=== PATIENT | male | born 1960 | race Two or more races ===

== ENCOUNTER → 2024-09-03 | Outpatient (CLI) | payer OTHER, SELFPAY ==
--- NOTE | 2024-09-03 09:17 | XR_ITS ---
Examination: CT abdomen and pelvis without contrast. Coronal 3-D reconstructions. Sagittal 2-D reconstructions. Date and time of exam:September 03, 2024 0925 hours INDICATIONS: Microscopic hematuria noted on laboratory examinations beginning 8 months ago CTDI: vol (mGy): 8.60 DLP: (mGycm): 524 Technique: Axial images of the abdomen have been obtained, 3 mm slice thickness Intravenous contrast material has not been administered. Low dose protocols were performed. One or more of the following dose reduction techniques were used; automated exposure control, adjustment of the mA and/or KV according to patient size, use of iterative reconstruction technique. Findings: No focal liver or splenic lesions No gallstones Fatty or adrenal mass Mild bilateral renal parenchymal scar formation No renal or ureteral calculi, no hydronephrosis Aorta normal size Colonic diverticulosis Normal appendix No bowel obstruction No diverticulitis Subtle density in the urinary bladder, axial image 197 on the left side posteriorly, measuring 20 mm Transverse prostate dimension 43 mm IMPRESSION: No renal or ureteral calculi, no hydronephrosis Normal appendix Suspicious for 20 mm mass in the posterior left bladder, recommend urinary bladder sonography follow-up
== END | disposition home or self-care (01) ==
PROVIDERS: PCP Internal Medicine; Referring Provider Internal Medicine; Visit Provider Internal Medicine
DX: N32.89 Other specified disorders of bladder (principal)
CPT/HCPCS: 74176

== ENCOUNTER → 2024-09-08 | Outpatient (CLI) | payer OTHER, SELFPAY ==
[2024-09-08 08:02] LABS: Collection Type, Urine Clean Catch; Squamous Epithelial Cell,Urine 0 /hpf (0-5)
[2024-09-08 08:24] LABS: Basophils # (Auto) 0.1 Thou/mm3 (0.0-0.2); Basophils % (Auto) 1 % (0-2.5); Eosinophils # (Auto) 0.3 Thou/mm3 (0.0-0.5); Eosinophils % (Auto) 2 % (0-10); Hematocrit 45.6 % (41.0-53.0); Hemoglobin 15.6 g/dL (13.5-16.0); Immature Granulocytes % (Auto) 1 % (0-0); Immature Granulocytes Auto 0.06 Thou/mm3 (0.00-0.00); Lymphocytes % (Auto) 28 % (10-50); Mean Corpuscular HGB Conc 34.2 g/dl (31.0-37.0); Mean Corpuscular Hemoglobin 33.1 pg (25.0-35.0); Mean Corpuscular Volume 97 fL (80-100); Monocytes % (Auto) 9 % (0-12); Neutrophils # (Auto) 6.4 Thou/mm3 (1.8-7.7); Neutrophils % (Auto) 59 % (37-80); Nucleated Red Blood Cell % 0 /100 WBC (0); Platelet Count 355 Thou/mm3 (140-440); RDW Standard Deviation 42.8 fL (35.1-43.9); Red Blood Count 4.71 Miln/mm3 (4.50-5.90); White Blood Count 10.8 Thou/mm3 (3.8-10.6)
[2024-09-08 08:35] LABS: Glucose Estimated Average 117 mg/dL (80-131); Hemoglobin A1C 5.7 % Hgb (4.8-6.0)
[2024-09-08 08:39] LABS: Bilirubin,Urine Negative (Negative); Blood,Urine 1+ (Negative); Clarity,Urine Clear (Clear/Hazy); Color,Urine Lt-Yellow (Lt Yel-Yel); Glucose, Urine Negative (Negative); Ketones,Urine Negative (Negative); Leukocyte Esterase,Urine Negative (Negative); Nitrite,Urine Negative (Negative); Protein,Urine Trace (Neg - Trace); RBC,Urine 54 /hpf (0-3); Specific Gravity,Urine 1.024 (1.001-1.035); Urobilinogen,Urine Negative mg/dL (0.0-1.0); WBC,Urine 6 /hpf (0-5)
[2024-09-08 08:43] LABS: Prostate Specific Antigen 1.62 ng/mL (0-4.00)
[2024-09-08 08:46] LABS: Vitamin B12 627 pg/mL (211-911); Vitamin D 25 Hydroxy Total 26.6 ng/mL (7.3-40.2)
[2024-09-08 08:51] LABS: Alanine Aminotransferase 20 U/L (10-49); Albumin, Serum 4.8 gm/dL (3.4-4.8); Albumin/Globulin Ratio 1.7 (1.2-2.2); Alkaline Phosphatase 81 U/L (46-116); Anion Gap 8 (7-16); Aspartate Amino Transferase 21 U/L (0-34); BUN/Creatinine Ratio 17 Ratio (12-20); Bilirubin,Total 0.5 mg/dL (0.3-1.2); Blood Urea Nitrogen 15 mg/dL (9-23); Calcium 9.8 mg/dL (8.3-10.6); Calcium (Corrected) 9.8 mg/dL (8.5-10.1); Carbon Dioxide 29.2 mMol/L (20.0-31.0); Cardiac Risk Estimate 3.5 RATIO (4.0-6.7); Chloride 104 mMol/L (98-107); Cholesterol 202 mg/dL (132-200); Creatinine (Component) 0.9 mg/dL (0.6-1.3); Globulin 2.8 gm/dL (2.3-3.5); Glucose 106 mg/dL (74-106); HDL Cholesterol 57 mg/dL (40-60); LDL Cholesterol,Calculated 129 mg/dL (0-130); Osmolality,Calculated 282 (275-295); Potassium 4.6 mMol/L (3.4-5.1); Sodium 141 mMol/L (136-145); Thyroid Stimulating Hormone 2.43 uIU/mL (0.55-4.78); Total Protein 7.6 gm/dL (5.7-8.2); Triglycerides 80 mg/dL (30-150); eGFR > 60 See Note
== END | disposition home or self-care (01) ==
LOC: COPL 07:27
PROVIDERS: PCP Internal Medicine; Referring Provider Internal Medicine; Visit Provider Internal Medicine
DX: Z00.00 Encounter for general adult medical examination without abnormal findings (principal)
CPT/HCPCS: 36415; 80053; 80061; 81001; 82306; 82607; 83036; 84153; 84443; 84550; 85025

== ENCOUNTER → 2024-09-20 | Outpatient (BNVA) | payer OTHER, SELFPAY | END | disposition home or self-care (01) | PROVIDERS: PCP Internal Medicine; Referring Provider Internal Medicine; Visit Provider Urology | DX: N40.0 Benign prostatic hyperplasia without lower urinary tract symptoms (principal); R31.0 Gross hematuria; Z87.891 Personal history of nicotine dependence; Z80.0 Family history of malignant neoplasm of digestive organs; Z80.42 Family history of malignant neoplasm of prostate | CPT/HCPCS: 81003; 99212; G0463 ==

== ENCOUNTER 2024-09-21 14:00 | Emergency (ER) | payer OTHER, SELFPAY ==
[2024-09-21 14:01] VITALS: BMI 28.8
--- NOTE | 2024-09-21 14:03 | EKG_ITS ---
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
--- NOTE | 2024-09-21 14:05 | EDNOTE_ITS ---
ED Male Genitalurinary RME/HPI General Chief complaint: Urogenital-Male Stated complaint: HEMATURIA Time Seen by Provider: 09/21/24 14:03 Arrival date/time: 09/21/24 14:00 64-year-old male presents the emergency department today complains of hematuria ongoing since November patient was evaluated by urology after having lab work and CT completed patient was instructed to come to the ER for lab work today for preop and to have a return visit tomorrow for admission for surgical intervention as there was a mass found on his CT scan Limitations: no limitations Related Data Home Medications ?Medication ?Instructions ?Recorded ?Confirmed No Known Home Medications 04/03/23 09/20/24 Allergies Allergy/AdvReac Type Severity Reaction Status Date / Time No Known Allergies Allergy Verified 09/21/24 14:01 Review of Systems Review of Systems Systems Reviewed: All systems reviewed, normal except as documented Constitutional Constitutional: Reports system reviewed and no additional complaints, except as documented, Denies fever(s) and Denies headache(s) Eyes Eyes: Reports system reviewed and no additional complaints, except as documented and Denies blurry vision ENT Ears, Nose, Mouth, and Throat: Reports system reviewed and no additional complaints, except as documented, Denies headache(s), Denies nasal congestion and Denies nasal discharge Cardiovascular Cardiovascular: Reports system reviewed and no additional complaints, except as documented, Denies chest pain and Denies dyspnea Respiratory Respiratory: Reports system reviewed and no additional complaints, except as documented, Denies chest congestion, Denies cough and Denies dyspnea Gastrointestinal Gastrointestinal: Reports system reviewed and no additional complaints, except as documented and Denies abdominal pain Genitourinary Genitourinary: Reports system reviewed and no additional complaints, except as documented, Reports hematuria, Denies testicular pain and Reports other (Pelvic pain) Integumentary/Breasts Skin/Breast: Reports system reviewed and no additional complaints, except as documented and Denies rash Neurologic Neurologic: Reports system reviewed and no additional complaints, except as documented, Reports as per HPI and Denies headache(s) Past Medical History Past Medical History NEUROLOGIC: Negative Neurological Disorders or Seizures CARDIAC: Negative Cardiac Disorders or Congestive Heart Failure RESPIRATORY: Negative Chronic Obstructive Pulmonary Disease (COPD) GASTROINTESTINAL: Negative Gastrointestinal Disorders or Hepatitis GENITOURINARY: Negative Genitourinary Disorders or Renal Disease MUSCULOSKELETAL: Negative Musculoskeletal Disorders ENDOCRINE: Negative Endocrine Disorders, Diabetes Mellitus Type 1 or Diabetes Mellitus Type 2 HEMATOLOGIC: Negative Blood Disorders OTHER HISTORY: Positive Chicken Pox, Measles and Mumps; Negative Falls, Blood Transfusions, Anesthesia Reactions, MRSA or Cancer Family History FAMILY HISTORY: Positive Family Cancer (MOTHER- COLON CA, BROTHERS- PROSTATE CA) Social History SMOKING STATUS: Former smoker ED Exam General Limitations: Present no limitations General appearance: Present alert and in no apparent distress Head Head exam: Present atraumatic, normocephalic and normal inspection Eye Eye exam: Present normal appearance, PERRL and EOMI; Absent conjunctival injection ENT ENT exam: Present normal exam, normal oropharynx and mucous membranes moist Neck Neck exam: Present normal inspection, full ROM and trachea midline Chest Chest inspection: Present normal inspection and symmetric chest wall rise Respiratory Respiratory exam: Present normal lung sounds bilaterally; Absent respiratory distress Cardiovascular Cardiovascular exam: Present regular rate, normal rhythm and normal heart sounds Abdominal Exam Abdominal exam: Present soft and normal bowel sounds; Absent distention, tenderness, guarding, rebound or rigidity Extremities Exam Extremities exam: Present normal inspection and full ROM Back Exam Back exam: Present normal inspection and full ROM Neurological Exam Neurological exam: Present alert, oriented X3 and CN II-XII intact Psychiatric Psychiatric exam: Present normal affect and normal mood Skin Skin exam: Present warm, dry, intact and normal color Course Quality Measures none Orders Category Date Time Status EKG (ED ONLY) *Do not use* NOW Care 09/21/24 14:03 Completed Consult to Urology Stat Cons 09/21/24 14:03 Active EKG (ED Only) Stat Exams 09/21/24 14:03 Draft CBC Stat Lab 09/21/24 14:17 Received Comprehensive Metabolic Panel Stat Lab 09/21/24 14:17 Completed Partial Thromboplastin Time Stat Lab 09/21/24 14:17 Completed Prothrombin Time with INR Stat Lab 09/21/24 14:17 Completed Vital Signs Vital signs: Vital Signs Temperature 98.4 F 09/21/24 14:14 Pulse Rate 79 09/21/24 14:14 Respiratory Rate 18 09/21/24 14:14 Blood Pressure 153/95 H 09/21/24 14:14 Pulse Oximetry (%) 98 09/21/24 14:14 Oxygen Delivery Method Room Air 09/21/24 14:14 O2 saturation 98% room air within normal limits Procedures -ED EKG Interpretation #1: Date of EK09/21/24 Time of EK:11 Rate: 68 Interpretation: Interpreted by me EKG Impression: Normal sinus rhythm, No acute ST-T changes, No ectopy, No ischemic changes, Normal QRS and Normal intervals Urogenital - Male MDM Narrative MDM Narrative:: 64-year-old male presents the emergency department today complains of hematuria ongoing since November patient was evaluated by urology after having lab work and CT completed patient was instructed to come to the ER for lab work today for preop and to have a return visit tomorrow for admission for surgical intervention as there was a mass found on his CT scan On exam patient well-appearing patient does not appear ill or toxic in no acute distress Lab work as well as EKG obtained EKG is unremarkable sinus rhythm Lab work obtained and reviewed by me Consultation: I spoke with Dr. Nickerson who reports he would like the patient to return tomorrow at 8 AM for further evaluation and surgical intervention Patient understands he is to return tomorrow morning Patient data External records reviewed:: [facility] previous records Clinical information provided by:: patient Social determinants that could affect healthcare access:: none Patient has the following chronic illnesses:: None How is presenting disease/condition affected by chronic disease/condition?: no chronic disease Evaluation data The following diagnostics were reviewed and interpreted by me:: lab results and radiology exam(s) Lab and/or radiology exams considered but not ordered:: Labs obtained Interpretation Summary: Reviewed by me Medications / Prescriptions Medications or Prescriptions considered but not ordered:: Given no meds Medication administrations:: No meds given Consultations Consultation(s) initiated? (list below): Yes Consultation #1 (Physician, Specialty, Details): Dr Nickerson Diagnosis Urogenital Male Differential Diagnosis: urinary tract infection and other (Cystitis, mass bladder) Most likely diagnosis given after review of the tests above:: Bladder mass Admission Indicated Admission indicated?: not indicated Admission Request Was there a request for admission?: No Disposition Plan Disposition Plan: Discharge Discharge Attestation Discharge Attestation: The patient and all family members were given an opportunity to ask questions and understood the discharge instructions. Discharge instructions specifically effects, indications for sooner follow up or return to the emergency department, and the expected course of current diagnosis. Patient condition: Stable Discharge Plan Plan Patient Disposition: HOME (Self Care) Disposition Comment: Stable Prescriptions/Referrals Prescriptions/Med Rec: No Action No Known Home Medications Problem List Clinical Impression: Abdominal pain, Hematuria Patient/Caregiver Discharge Instructions Education Materials: ED Hematuria Additional Instructions: Please return tomorrow at 8 AM for surgical intervention for worsening symptoms or concerns return immediately Print Language: Persian Stand Alone Forms: Alicia Award Info., Patient Portal Info Letter PA/RUBBER CALENDER HELPER Supervising Physician PA/RUBBER CALENDER HELPER Supervising Physician: Dr tillman
[2024-09-21 14:14] VITALS: BP 153/95; PULSE 79; RESP 18; TEMP 36.9; O2SAT 98
[2024-09-21 14:38] LABS: Basophils # (Auto) 0.1 Thou/mm3 (0.0-0.2); Basophils % (Auto) 1 % (0-2.5); Eosinophils # (Auto) 0.2 Thou/mm3 (0.0-0.5); Eosinophils % (Auto) 2 % (0-10); Hematocrit 43.6 % (41.0-53.0); Hemoglobin 15.3 g/dL (13.5-16.0); Immature Granulocytes % (Auto) 0 % (0-0); Immature Granulocytes Auto 0.04 Thou/mm3 (0.00-0.00); Lymphocytes # (Auto) 3.5 Thou/mm3 (1.0-4.8); Lymphocytes % (Auto) 35 % (10-50); Mean Corpuscular HGB Conc 35.1 g/dl (31.0-37.0); Mean Corpuscular Hemoglobin 33.2 pg (25.0-35.0); Mean Corpuscular Volume 95 fL (80-100); Monocytes # (Auto) 0.9 Thou/mm3 (0.0-0.8); Monocytes % (Auto) 9 % (0-12); Neutrophils # (Auto) 5.3 Thou/mm3 (1.8-7.7); Neutrophils % (Auto) 53 % (37-80); Nucleated Red Blood Cell % 0 /100 WBC (0); Platelet Count 321 Thou/mm3 (140-440); RDW Standard Deviation 42.3 fL (35.1-43.9); Red Blood Count 4.61 Miln/mm3 (4.50-5.90); White Blood Count 10.1 Thou/mm3 (3.8-10.6)
[2024-09-21 14:52] LABS: Partial Thromboplastin Time 26.8 Seconds (22.0-36.0); Prothrombin Time 10.6 Seconds (9.0-12.2)
[2024-09-21 14:58] LABS: Alanine Aminotransferase 25 U/L (10-49); Albumin, Serum 4.7 gm/dL (3.4-4.8); Albumin/Globulin Ratio 1.5 (1.2-2.2); Alkaline Phosphatase 78 U/L (46-116); Anion Gap 9 (7-16); Aspartate Amino Transferase 26 U/L (0-34); BUN/Creatinine Ratio 17 Ratio (12-20); Bilirubin,Total 0.4 mg/dL (0.3-1.2); Blood Urea Nitrogen 17 mg/dL (9-23); Calcium 9.9 mg/dL (8.3-10.6); Calcium (Corrected) 9.9 mg/dL (8.5-10.1); Carbon Dioxide 28.8 mMol/L (20.0-31.0); Chloride 103 mMol/L (98-107); Estimated Creatinine Clearance 79.7 mL/min (>60); Globulin 3.1 gm/dL (2.3-3.5); Glucose 149 mg/dL (74-106); Osmolality,Calculated 285 (275-295); Potassium 3.8 mMol/L (3.4-5.1); Sodium 141 mMol/L (136-145); Total Protein 7.8 gm/dL (5.7-8.2); eGFR > 60 See Note
== END 2024-09-21 14:43 | disposition home or self-care (01) ==
LOC: SERX 15:11
PROVIDERS: Nurse Practitioner Primary Care; Emergency Provider Emergency Medicine
DX: R31.9 Hematuria, unspecified (principal); R10.9 Unspecified abdominal pain; R10.2 Pelvic and perineal pain
CPT/HCPCS: 36415; 80053; 85025; 85610; 85730; 93005; 99283

== ENCOUNTER 2024-09-22 08:35 | Day surgery (SDC) | payer OTHER, SELFPAY ==
[2024-09-22] VITALS (8 sets, daily range): BP systolic 120–141; BP diastolic 43–95; PULSE 79–102; RESP 12–18; TEMP 36.6–37.1; O2SAT 93–98; BMI 28.7
--- NOTE | 2024-09-22 11:57 | EDNOTE_ITS ---
ED Male Genitalurinary RME/HPI General Chief complaint: Urogenital-Male Stated complaint: blood in urine and pain increased x2 days Time Seen by Provider: 09/22/24 08:40 Arrival date/time: 09/22/24 08:35 64-year-old male presents the emergency department today complains of hematuria ongoing since November patient was evaluated by urology after having lab work and CT completed patient was instructed to come to the ER in order to be admitted to the hospital for surgical intervention Limitations: no limitations Related Data Home Medications ?Medication ?Instructions ?Recorded ?Confirmed No Known Home Medications 04/03/23 09/20/24 Allergies Allergy/AdvReac Type Severity Reaction Status Date / Time No Known Allergies Allergy Verified 09/22/24 08:36 Review of Systems Review of Systems Systems Reviewed: All systems reviewed, normal except as documented Constitutional Constitutional: Reports system reviewed and no additional complaints, except as documented, Denies fever(s) and Denies headache(s) Eyes Eyes: Reports system reviewed and no additional complaints, except as documented and Denies blurry vision ENT Ears, Nose, Mouth, and Throat: Reports system reviewed and no additional complaints, except as documented, Denies headache(s), Denies nasal congestion and Denies nasal discharge Cardiovascular Cardiovascular: Reports system reviewed and no additional complaints, except as documented, Denies chest pain and Denies dyspnea Respiratory Respiratory: Reports system reviewed and no additional complaints, except as documented, Denies chest congestion, Denies cough and Denies dyspnea Gastrointestinal Gastrointestinal: Reports system reviewed and no additional complaints, except as documented and Denies abdominal pain Genitourinary Genitourinary: Reports system reviewed and no additional complaints, except as documented Integumentary/Breasts Skin/Breast: Reports system reviewed and no additional complaints, except as documented and Denies rash Neurologic Neurologic: Reports system reviewed and no additional complaints, except as documented, Reports as per HPI and Denies headache(s) Past Medical History Past Medical History NEUROLOGIC: Negative Neurological Disorders or Seizures CARDIAC: Negative Cardiac Disorders or Congestive Heart Failure RESPIRATORY: Negative Chronic Obstructive Pulmonary Disease (COPD) GASTROINTESTINAL: Negative Gastrointestinal Disorders or Hepatitis GENITOURINARY: Negative Genitourinary Disorders or Renal Disease MUSCULOSKELETAL: Negative Musculoskeletal Disorders ENDOCRINE: Negative Endocrine Disorders, Diabetes Mellitus Type 1 or Diabetes Mellitus Type 2 HEMATOLOGIC: Negative Blood Disorders OTHER HISTORY: Positive Chicken Pox, Measles and Mumps; Negative Falls, Blood Transfusions, Anesthesia Reactions, MRSA or Cancer Family History FAMILY HISTORY: Positive Family Cancer (MOTHER- COLON CA, BROTHERS- PROSTATE CA) Social History SMOKING STATUS: Never smoker ED Exam General Limitations: Present no limitations General appearance: Present alert and in no apparent distress Head Head exam: Present atraumatic, normocephalic and normal inspection Eye Eye exam: Present normal appearance, PERRL and EOMI; Absent conjunctival injection ENT ENT exam: Present normal exam, normal oropharynx and mucous membranes moist Neck Neck exam: Present normal inspection, full ROM and trachea midline Chest Chest inspection: Present normal inspection and symmetric chest wall rise Respiratory Respiratory exam: Present normal lung sounds bilaterally; Absent respiratory distress Cardiovascular Cardiovascular exam: Present regular rate, normal rhythm and normal heart sounds Abdominal Exam Abdominal exam: Present soft and normal bowel sounds; Absent distention, tenderness, guarding, rebound or rigidity Abdominal tenderness: Absent RUQ or RLQ Extremities Exam Extremities exam: Present normal inspection and full ROM Back Exam Back exam: Present normal inspection and full ROM Neurological Exam Neurological exam: Present alert, oriented X3 and CN II-XII intact Psychiatric Psychiatric exam: Present normal affect and normal mood Skin Skin exam: Present warm, dry, intact and normal color Course Quality Measures none Orders Category Date Time Status COVID-19 Screening Questionnaire NOW Care 09/22/24 08:45 Active Decision to Admit X1 Care 09/22/24 08:45 Completed Insert IV NOW Care 09/22/24 08:45 Active NPO NOW Care 09/22/24 08:45 Active Consult to Urology Stat Cons 09/22/24 08:45 Active Diet NPO (NOW) Diet 09/22/24 08:45 Active Vital Signs Vital signs: Vital Signs Temperature 98.7 F 09/22/24 08:44 Pulse Rate 79 09/22/24 08:44 Respiratory Rate 18 09/22/24 08:44 Blood Pressure 132/79 H 09/22/24 08:44 Pulse Oximetry (%) 97 09/22/24 08:44 Oxygen Delivery Method Room Air 09/22/24 08:44 O2 saturation 97% room air within normal limits Urogenital - Male MDM Narrative MDM Narrative:: 64-year-old male presents the emergency department today complains of hematuria ongoing since November patient was evaluated by urology after having lab work and CT completed patient was instructed to come to the ER in order to be admitted to the hospital for surgical intervention On exam patient well-appearing patient does not appear ill or toxic Lab work was completed yesterday EKG was completed yesterday no acute emergent findings noted Patient admitted in no distress Patient data External records reviewed:: [facility] previous records Clinical information provided by:: patient Social determinants that could affect healthcare access:: none Patient has the following chronic illnesses:: See history How is presenting disease/condition affected by chronic disease/condition?: caused by Evaluation data The following diagnostics were reviewed and interpreted by me:: lab results and radiology exam(s) Lab and/or radiology exams considered but not ordered:: Labs radiology obtain Interpretation Summary: Findings: No focal liver or splenic lesions No gallstones Fatty or adrenal mass Mild bilateral renal parenchymal scar formation No renal or ureteral calculi, no hydronephrosis Aorta normal size Colonic diverticulosis Normal appendix No bowel obstruction No diverticulitis Subtle density in the urinary bladder, axial image 197 on the left side posteriorly, measuring 20 mm Transverse prostate dimension 43 mm IMPRESSION: No renal or ureteral calculi, no hydronephrosis Normal appendix Suspicious for 20 mm mass in the posterior left bladder, recommend urinary bladder sonography follow-up Dictated By: Jay Hoskins MD Medications / Prescriptions Medications or Prescriptions considered but not ordered:: Given no meds Medication administrations:: Given no meds Consultations Consultation(s) initiated? (list below): Yes Consultation #1 (Physician, Specialty, Details): Dr Nickerson Diagnosis Urogenital Male Differential Diagnosis: urinary tract infection and other (Cystitis, bladder mass) Most likely diagnosis given after review of the tests above:: Bladder mass Admission Indicated Admission indicated?: not indicated Admission Request Was there a request for admission?: No Disposition Plan Disposition Plan: Discharge Discharge Attestation Discharge Attestation: The patient and all family members were given an opportunity to ask questions and understood the discharge instructions. Discharge instructions specifically effects, indications for sooner follow up or return to the emergency department, and the expected course of current diagnosis. Patient condition: Stable Discharge Plan Plan Patient Disposition: Admit Acute Care w/in Hospital Disposition Comment: Stable Problem List Clinical Impression: Bladder mass, Hematuria PA/PLANT OPERATIONS MANAGER Supervising Physician ISABEL/PLANT OPERATIONS MANAGER Supervising Physician: Dr tillman
--- NOTE | 2024-09-22 13:38 | SUR.PHASEI ---
1338: Pt. AAOx4, vitals stable, breathing unlabored, no complaint of pain or nausea, pratt catheter in place draining clear urine, no dressing in place, report received from MD Denton and Evin TORRE.
--- NOTE | 2024-09-22 13:43 | PD.SUROPNT ---
Date of Procedure 09/22/24 Pre Op Diagnosis BPH with urinary obstruction, gross hematuria, bladder mass, Post Op Diagnosis Same Procedure Cystoscopic examination of bladder biopsy Findings Large bladder mass 3 to 4 cm left lateral wall papillary, BPH Procedure Description Indication for procedure this is a 64-year-old gentleman this patient is seen through emergency room he has history of intermittent gross hematuria. He had a CAT scan urogram done this revealed large mass left lateral wall of the bladder he was recommended cystoscopic examination possible bladder biopsy, procedure and complications were discussed with the patient in great detail informed consent is obtained Patient was brought to the operating room in a satisfactory condition after appropriate premedication was put on the operating table in a spine position was appropriately identified by surgeon and operating room staff site scope and indication of the procedure were reconfirmed with the patient The patient received 160 mg IV piggyback gentamicin pre-op prophylaxis. General anesthesia was given uneventfully patient was positioned in a dorsal lithotomy position. . The patient was prepped in a sterile manner. Local anesthetic was placed into the urethra. Cystoscopy was then performed. The urethra had no intrinsic lesions up to the prostatic fossa. There was [bilobar/prostatic enlargement. Examination of the bladder revealed evidence of cancerous lesions, papillary about 4 cm to 5 cm left lateral wall of the bladder biopsy was obtained fulguration was carried out. There was [mild/moderate] trabeculation . Right ureter was effluxing clear urine left ureter was not visualized biopsy. The bladder was completely drained and the scope removed. #16 Villalpando catheter was inserted the patient tolerated the procedure well. Post-op instructions were given. The patient is to call the office should any problems occur. Patient disposition he will be scheduled for TURBT Anesthesia GETA Pathology / specimen Other (Bladder biopsy) Estimated Blood Loss 0.5 Condition Stable Disposition PACU Surgeon Maranda Nickerson MD Surgical Staff Operation Date: 09/22/24 13:00 Case Staff Anesthesiologist: Delfino Denton
--- NOTE | 2024-09-22 14:40 | SUR.PHASEII ---
1440: Pt. AAOx4, vitals stable, breathing unlabored, no complaint of pain or nausea, no dressing in place, no pratt in place, pt. tolerated sips of water well, pt. ambulated to wheelchair with steady gait and no assist, no complications. Gave discharge instructions to the pt. and his ride, both verbalized understanding and had no further questions. Pt. left with all personal belongings.
--- NOTE | 2024-09-22 15:30 | SUR.PHASEII ---
1440: Family had belongings, no belongings paper was filled prior surgery.
--- NOTE | 2024-09-22 16:18 | ESCONSULT_ITS ---
RE: YASMEEN ANTONY : 1960 DATE OF CONSULTATION: 09/22/2024 The patient is seen in the emergency room. CHIEF COMPLAINT: 1. Gross hematuria. 2. BPH. 3. Filling defect in the bladder on CAT scan of the abdomen and pelvis. HISTORY OF PRESENT ILLNESS: This is a 64-year-old gentleman. He has a very strong family history of colon cancer and prostate cancer. The patient has a history of smoking for 10 years. Currently, he is not a smoker. He has frequency of urination x1 at night, 5 times during the day. The patient has a history of intermittent gross hematuria since 12/2023. His recent episode was in August and another one 3 days ago. The blood in the urine is fresh and sometimes clots. The patient has no history of bleeding diastasis. He is not taking any anticoagulants. Past medical history, family history, review of the system, personal history, please refer to patient history form dated 09/22/2024, it is in HPI, in EMR. PHYSICAL EXAMINATION: GENERAL: Condition is satisfactory. Orientation x3. HEENT: Normocephalic and atraumatic. Eyes: No anemia or jaundice. NECK: Supple. Trachea is central. Thyroid is not enlarged. EXTREMITIES: Revealed no edema, cyanosis or clubbing. VITAL SIGNS: Stable. They are in HPI, in EMR. CHEST: Symmetrical. HEART: Regular rate and rhythm. ABDOMEN: Obese. No masses. Liver, spleen, and kidney not palpable. No CVA tenderness. GENITALIA: He has atrophic testis right side. He had mumps as a child. CAT scan is reviewed by me. There is a filling defect, left lateral wall of the bladder. IMPRESSION: 1. Benign prostatic hypertrophy. 2. Gross hematuria. 3. Filling defect on CAT scan of the abdomen and pelvis. Urine for cytology revealed atypical cells. RECOMMENDATIONS: Cystoscopic examination and bladder biopsy. I did discuss with him in great detail. If it is a tumor, which can be easily resected, then I am going to do transurethral resection of the bladder tumor. Procedure and complications of which are discussed with patient in great detail. I explained to him there is a possibility of bleeding, infection, perforation, sepsis, etc. There are also anesthetic complications. All above issues were discussed with patient in great detail. I answered all his questions to their satisfaction. He verbalized understanding and he has given permission for cystoscopy, possible bladder biopsy, and possible transurethral resection of the bladder tumor. DT: 12:23:15 TT: 16:16:00 Ref: [id number] - TID: [id number]
--- NOTE | 2024-09-23 12:44 | PD.ANESPROG ---
Documentation for date of: 09/23/24 POST ANESTHESIA NOTE: Patient had general LMA anesthesia for cysto and bladder mass bx yesterday. I just called and spoke with him on the phone and he denied any problems from anesthesia. Delfino Denton MD Anesthesia Progress Note Progress Note Most recent Vital Signs: Last Vital Signs Temp 98.0 F 09/22/24 14:35 Pulse 83 09/22/24 14:35 Resp 12 09/22/24 14:35 BP 141/87 H 09/22/24 14:35 Pulse Ox 96 09/22/24 14:35 O2 Del Method Room Air 09/22/24 08:44
== END 2024-09-22 14:40 | disposition home or self-care (01) ==
LOC: SERX 09:54 → SERHOLD 11:58 → S2EX 09-23 08:30
PROVIDERS: Emergency Provider Emergency Medicine; PCP Internal Medicine; Referring Provider Urology; Visit Provider Urology
PROC: 0T5B8ZZ Destruction of Bladder, Via Natural or Artificial Opening Endoscopic (ICD-10-PCS; CPT 52224; principal; 2024-09-22 12:45)
DX: C67.9 Malignant neoplasm of bladder, unspecified (principal); N40.1 Benign prostatic hyperplasia with lower urinary tract symptoms; N13.8 Other obstructive and reflux uropathy; N32.9 Bladder disorder, unspecified; Z80.0 Family history of malignant neoplasm of digestive organs; Z87.891 Personal history of nicotine dependence
CPT/HCPCS: 52224; 99285; A4217; A4649; C1894; J1100; J1580; J2704; J2765; J3010; J3490

== ENCOUNTER 2024-10-13 08:00 | Day surgery (SDC) | payer OTHER, SELFPAY ==
[2024-10-12 11:41] VITALS: BMI 28.8
[2024-10-12 12:37] LABS: Basophils # (Auto) 0.1 Thou/mm3 (0.0-0.2); Basophils % (Auto) 1 % (0-2.5); Eosinophils # (Auto) 0.2 Thou/mm3 (0.0-0.5); Eosinophils % (Auto) 2 % (0-10); Hematocrit 44.8 % (41.0-53.0); Hemoglobin 15.2 g/dL (13.5-16.0); Immature Granulocytes % (Auto) 0 % (0-0); Immature Granulocytes Auto 0.02 Thou/mm3 (0.00-0.00); Lymphocytes # (Auto) 3.7 Thou/mm3 (1.0-4.8); Lymphocytes % (Auto) 41 % (10-50); Mean Corpuscular HGB Conc 33.9 g/dl (31.0-37.0); Mean Corpuscular Hemoglobin 32.7 pg (25.0-35.0); Mean Corpuscular Volume 96 fL (80-100); Monocytes # (Auto) 0.8 Thou/mm3 (0.0-0.8); Monocytes % (Auto) 9 % (0-12); Neutrophils # (Auto) 4.2 Thou/mm3 (1.8-7.7); Neutrophils % (Auto) 47 % (37-80); Nucleated Red Blood Cell % 0 /100 WBC (0); Platelet Count 305 Thou/mm3 (140-440); RDW Standard Deviation 43.4 fL (35.1-43.9); Red Blood Count 4.65 Miln/mm3 (4.50-5.90)
[2024-10-12 12:47] LABS: Alanine Aminotransferase 20 U/L (10-49); Albumin, Serum 4.6 gm/dL (3.4-4.8); Albumin/Globulin Ratio 1.6 (1.2-2.2); Alkaline Phosphatase 77 U/L (46-116); Anion Gap 6 (7-16); Aspartate Amino Transferase 24 U/L (0-34); BUN/Creatinine Ratio 16 Ratio (12-20); Bilirubin,Total 0.3 mg/dL (0.3-1.2); Blood Urea Nitrogen 14 mg/dL (9-23); Calcium 9.7 mg/dL (8.3-10.6); Calcium (Corrected) 9.7 mg/dL (8.5-10.1); Carbon Dioxide 27.7 mMol/L (20.0-31.0); Chloride 107 mMol/L (98-107); Creatinine (Component) 0.9 mg/dL (0.6-1.3); Estimated Creatinine Clearance 88.6 mL/min (>60); Globulin 2.8 gm/dL (2.3-3.5); Glucose 103 mg/dL (74-106); INR 0.9 (0.9-1.3); Osmolality,Calculated 281 (275-295); Partial Thromboplastin Time 26.8 Seconds (22.0-36.0); Potassium 4.4 mMol/L (3.4-5.1); Prothrombin Time 10.4 Seconds (9.0-12.2); Sodium 141 mMol/L (136-145); Total Protein 7.4 gm/dL (5.7-8.2); eGFR > 60 See Note
--- NOTE | 2024-10-12 15:05 | SUR.PREOP ---
Mitomycin for bladder available. Confirm with Adam at pharmacy.
[2024-10-13] VITALS (14 sets, daily range): BP systolic 103–177; BP diastolic 59–101; PULSE 80–107; RESP 12–20; TEMP 36.2–37.1; O2SAT 95–98; BMI 28.8
[2024-10-13] MEDS: RINGERS LACTATED 1000 ML 1,000 ML 20 ML IV (09:17)
--- NOTE | 2024-10-13 11:31 | SUR.PHASEI ---
1125 patient is awake, alert, breathing unlabored s/p TURBT under general anesthesia, 20fr [address] way fol[address] catheter in place with catheter plug and mitomycin instilled in bladder. folley to be drained at 1145 per RN report. Report received from Dr. farrell and Chris TORRE
--- NOTE | 2024-10-13 11:45 | SUR.PHASEI ---
1145 Report received from Mala TORRE
--- NOTE | 2024-10-13 11:45 | SUR.PHASEI ---
1145 patient is awake, alert, breathing unlabored, report given to Judith Villagomez RN, will remove catheter plug and drain mitomycin.
--- NOTE | 2024-10-13 11:46 | SUR.PHASEI ---
1146 Dr. Nickerson at bedside, catheter unplugged, catheter draining, patient verbal order received STAT CBC and CMP, will place order
--- NOTE | 2024-10-13 11:55 | SUR.PHASEII ---
1159 Patient at bedside with patient
--- NOTE | 2024-10-13 12:02 | SUR.PHASEI ---
1202 Dr. Nickerson at bedside and order bolus of LR 1000MG, will place order and start bolus per MD order
[2024-10-13] MEDS: RINGERS LACTATED 1000 ML 1,000 ML 999 ML IV ×2 (12:05→13:18)
--- NOTE | 2024-10-13 12:05 | SUR.PHASEI ---
1205 Dr. Nickerson gave orders to keep patient in recovery until his labs result and MD will review lab results and make decision on discharge for patient
[2024-10-13 12:25] LABS: Basophils # (Auto) 0.1 Thou/mm3 (0.0-0.2); Basophils % (Auto) 1 % (0-2.5); Eosinophils # (Auto) 0.1 Thou/mm3 (0.0-0.5); Eosinophils % (Auto) 1 % (0-10); Hematocrit 43.1 % (41.0-53.0); Hemoglobin 14.9 g/dL (13.5-16.0); Immature Granulocytes % (Auto) 0 % (0-0); Immature Granulocytes Auto 0.05 Thou/mm3 (0.00-0.00); Lymphocytes % (Auto) 16 % (10-50); Mean Corpuscular HGB Conc 34.6 g/dl (31.0-37.0); Mean Corpuscular Hemoglobin 33.3 pg (25.0-35.0); Mean Corpuscular Volume 96 fL (80-100); Monocytes # (Auto) 0.3 Thou/mm3 (0.0-0.8); Monocytes % (Auto) 3 % (0-12); Neutrophils # (Auto) 9.9 Thou/mm3 (1.8-7.7); Neutrophils % (Auto) 80 % (37-80); Nucleated Red Blood Cell % 0 /100 WBC (0); Platelet Count 286 Thou/mm3 (140-440); RDW Standard Deviation 43.8 fL (35.1-43.9); Red Blood Count 4.48 Miln/mm3 (4.50-5.90); White Blood Count 12.5 Thou/mm3 (3.8-10.6)
[2024-10-13 12:53] LABS: Alanine Aminotransferase 20 U/L (10-49); Albumin, Serum 4.3 gm/dL (3.4-4.8); Albumin/Globulin Ratio 1.7 (1.2-2.2); Alkaline Phosphatase 75 U/L (46-116); Anion Gap 5 (7-16); Aspartate Amino Transferase 21 U/L (0-34); BUN/Creatinine Ratio 13 Ratio (12-20); Bilirubin,Total 0.4 mg/dL (0.3-1.2); Blood Urea Nitrogen 12 mg/dL (9-23); Calcium 8.8 mg/dL (8.3-10.6); Calcium (Corrected) 8.8 mg/dL (8.5-10.1); Chloride 110 mMol/L (98-107); Creatinine (Component) 0.9 mg/dL (0.6-1.3); Estimated Creatinine Clearance 88.6 mL/min (>60); Globulin 2.5 gm/dL (2.3-3.5); Glucose 137 mg/dL (74-106); Osmolality,Calculated 282 (275-295); Potassium 4.5 mMol/L (3.4-5.1); Sodium 141 mMol/L (136-145); Total Protein 6.8 gm/dL (5.7-8.2); eGFR > 60 See Note
--- NOTE | 2024-10-13 13:17 | SUR.PHASEII ---
Dr. Nickerson at bedside talking with patient and his , encouraging patient to drink more fluids
--- NOTE | 2024-10-13 13:18 | SUR.PHASEII ---
1318 verbal order read-back received for LR bolus 1000mg, will place order and start fluids per MD order
--- NOTE | 2024-10-13 13:46 | PD.SUROPNT ---
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 He has urological workup he was found to have a large tumor posterior wall lateral wall of the bladder he was recommended above procedure procedure and complications were discussed with patient in great detail informed consent is obtained Patient was brought to the operating room in a satisfactory condition after appropriate premedication he was appropriately identified by the surgeon and operating room staff site and scope of the indications were reconfirmed with the patient. Next general anesthesia was given uneventfully patient was positioned in the dorsolithotomy position parts were prepped and draped easily in the usual sterile fashion 2% lidocaine was instilled into the urethra 21 cystoscope was used to do the cystourethroscopy examination of urethra was without any stricture prostatic urethra revealed bilobar prostatic hypertrophy inside of the bladder in all the quadrant was carried out he has a very large tumor 3 to 4 cm posterior lateral wall left side. It was bleeding. Next the cystoscope was withdrawn gently 25 resectoscope was introduced into the bladder per urethra. Resection of the tumor was started. There was arterial bleeder which was fulgurated. Bladder tumor was resected at the base of the tumor was fulgurated. No active bleeding was seen instrument was withdrawn gently number 20 [place] three-way [place] catheter was inserted balloon was inflated with 15 cc of water bladder was irrigated return of the fluid was clear through the catheter I instilled 40 mg of Mitomycin-C and 40 cc of sterile saline. Patient was sent to recovery room in a satisfactory condition. I emptied the bladder after an hour abdomen is soft nontender not distended it was connected to drainage bag at the urine was clear In the recovery room patient had CBC lites they are all normal except slightly elevated white cell count which is expected after surgery. Patient disposition he will be discharged home he will see me in the office tomorrow morning postop instructions are given to patient and in great detail and of dictation thank you Anesthesia GETA Pathology / specimen Other Pathology comment: Bladder tumor Estimated Blood Loss 50 Condition Stable Disposition PACU Surgeon Maranda Nickerson MD Surgical Staff Operation Date: 10/13/24 10:00 Case Staff Anesthesiologist: Delfino Denton
--- NOTE | 2024-10-13 13:58 | SUR.PHASEII ---
1358 Dr. Nickerson currently at bedside assessing patient, MD gave orders for patient to proceed with discharge, stop IV fluids currently running in patients IV, will proceed with discharging patient per MD order
--- NOTE | 2024-10-13 14:42 | SUR.PHASEII ---
1442 Patient meets discharge criteria from recovery, awake and alert, breathing unlabored, vital signs stable, denies pain, urinary catheter 20F in place with leg secure; draining to gravity, patient drinking fluids; denies nausea, patient assisted with dressing into his clothing by his , discharge instructions given to patient and patients , signed discharge instructions. Patient given all his belongings prior to discharge, transported via wheelchair and left in a private vehicle.
== END 2024-10-13 14:42 | disposition home or self-care (01) ==
PROVIDERS: PCP Internal Medicine; Referring Provider Urology; Visit Provider Urology
PROC: 0TBB8ZZ Excision of Bladder, Via Natural or Artificial Opening Endoscopic (ICD-10-PCS; CPT 52240; principal; 2024-10-13 09:45)
PROC: 0TJB8ZZ Inspection of Bladder, Via Natural or Artificial Opening Endoscopic (ICD-10-PCS; CPT 52000; 2024-10-13 09:45)
DX: C67.9 Malignant neoplasm of bladder, unspecified (principal); N40.0 Benign prostatic hyperplasia without lower urinary tract symptoms; Z80.0 Family history of malignant neoplasm of digestive organs; Z80.42 Family history of malignant neoplasm of prostate; Z87.891 Personal history of nicotine dependence
CPT/HCPCS: 52240; 36415; 80053; 85025; 85610; 85730; A4217; A4649; C1894; J1100; J1580; J2371; J2704; J2765; J3010; J3490; J7120

== ENCOUNTER → 2024-10-19 | Outpatient (BNVA) | payer OTHER, SELFPAY | END | disposition home or self-care (01) | PROVIDERS: PCP Internal Medicine; Referring Provider Internal Medicine; Visit Provider Urology | DX: N40.0 Benign prostatic hyperplasia without lower urinary tract symptoms (principal); C67.9 Malignant neoplasm of bladder, unspecified | CPT/HCPCS: 81003; 99212; G0463 ==

== ENCOUNTER → 2024-12-15 | Outpatient (CLI) | payer OTHER, SELFPAY ==
[2024-12-15 08:05] LABS: Collection Type, Urine Clean Catch; Squamous Epithelial Cell,Urine 0 /hpf (0-5)
[2024-12-15 08:36] LABS: Basophils # (Auto) 0.1 Thou/mm3 (0.0-0.2); Basophils % (Auto) 1 % (0-2.5); Eosinophils # (Auto) 0.2 Thou/mm3 (0.0-0.5); Eosinophils % (Auto) 2 % (0-10); Hematocrit 43.9 % (41.0-53.0); Hemoglobin 15.1 g/dL (13.5-16.0); Immature Granulocytes % (Auto) 0 % (0-0); Immature Granulocytes Auto 0.01 Thou/mm3 (0.00-0.00); Lymphocytes % (Auto) 41 % (10-50); Mean Corpuscular HGB Conc 34.4 g/dl (31.0-37.0); Mean Corpuscular Volume 96 fL (80-100); Monocytes # (Auto) 0.7 Thou/mm3 (0.0-0.8); Monocytes % (Auto) 10 % (0-12); Neutrophils # (Auto) 3.4 Thou/mm3 (1.8-7.7); Neutrophils % (Auto) 46 % (37-80); Nucleated Red Blood Cell % 0 /100 WBC (0); Platelet Count 307 Thou/mm3 (140-440); RDW Standard Deviation 42.5 fL (35.1-43.9); Red Blood Count 4.58 Miln/mm3 (4.50-5.90); White Blood Count 7.4 Thou/mm3 (3.8-10.6)
[2024-12-15 08:46] LABS: Glucose Estimated Average 117 mg/dL (80-131); Hemoglobin A1C 5.7 % Hgb (4.8-6.0)
[2024-12-15 09:04] LABS: Bacteria,Urine Rare; Bilirubin,Urine Negative (Negative); Blood,Urine Negative (Negative); Clarity,Urine Clear (Clear/Hazy); Color,Urine Lt-Yellow (Lt Yel-Yel); Glucose, Urine Negative (Negative); Ketones,Urine Negative (Negative); Leukocyte Esterase,Urine Negative (Negative); Nitrite,Urine Negative (Negative); Protein,Urine Negative (Neg - Trace); RBC,Urine 2 /hpf (0-3); Specific Gravity,Urine 1.024 (1.001-1.035); Urobilinogen,Urine Negative mg/dL (0.0-1.0); WBC,Urine < 1 /hpf (0-5)
[2024-12-15 09:07] LABS: Alanine Aminotransferase 20 U/L (10-49); Albumin, Serum 4.3 gm/dL (3.4-4.8); Albumin/Globulin Ratio 1.7 (1.2-2.2); Alkaline Phosphatase 77 U/L (46-116); Anion Gap 8 (7-16); Aspartate Amino Transferase 24 U/L (0-34); BUN/Creatinine Ratio 17 Ratio (12-20); Bilirubin,Total 0.5 mg/dL (0.3-1.2); Blood Urea Nitrogen 15 mg/dL (9-23); Calcium 9.3 mg/dL (8.3-10.6); Calcium (Corrected) 9.3 mg/dL (8.5-10.1); Carbon Dioxide 28.6 mMol/L (20.0-31.0); Cardiac Risk Estimate 3.1 RATIO (4.0-6.7); Chloride 107 mMol/L (98-107); Cholesterol 188 mg/dL (132-200); Creatinine (Component) 0.9 mg/dL (0.6-1.3); Globulin 2.6 gm/dL (2.3-3.5); Glucose 102 mg/dL (74-106); HDL Cholesterol 61 mg/dL (40-60); LDL Cholesterol,Calculated 108 mg/dL (0-130); Osmolality,Calculated 287 (275-295); Potassium 4.6 mMol/L (3.4-5.1); Sodium 144 mMol/L (136-145); Thyroid Stimulating Hormone 3.03 uIU/mL (0.55-4.78); Total Protein 6.9 gm/dL (5.7-8.2); Triglycerides 97 mg/dL (30-150); Uric Acid 6.9 mg/dL (3.7-9.2); eGFR > 60 See Note
[2024-12-15 23:41] LABS: Vitamin D 25 Hydroxy Total 37.4 ng/mL (7.3-40.2)
[2024-12-17 06:40] LABS: Vitamin B12 494 pg/mL (211-911)
== END | disposition home or self-care (01) ==
PROVIDERS: PCP Internal Medicine; Referring Provider Internal Medicine; Visit Provider Internal Medicine
DX: Z00.00 Encounter for general adult medical examination without abnormal findings (principal)
CPT/HCPCS: 36415; 80053; 80061; 81001; 82306; 82607; 83036; 84153; 84443; 84550; 85025

== ENCOUNTER → 2024-12-17 | Outpatient (BNVA) | payer OTHER, SELFPAY | END | disposition home or self-care (01) | PROVIDERS: PCP Internal Medicine; Referring Provider Internal Medicine; Visit Provider Urology | DX: C67.9 Malignant neoplasm of bladder, unspecified (principal); Z80.42 Family history of malignant neoplasm of prostate; Z87.891 Personal history of nicotine dependence | CPT/HCPCS: 99212; G0463 ==

== ENCOUNTER → 2025-02-15 | Outpatient (BNVA) | payer OTHER, SELFPAY | END | disposition home or self-care (01) | PROVIDERS: PCP Internal Medicine; Referring Provider Internal Medicine; Visit Provider Urology | DX: C67.9 Malignant neoplasm of bladder, unspecified (principal) | CPT/HCPCS: 81003; 99212; G0463 ==

== ENCOUNTER → 2025-03-11 | Outpatient (CLI) | payer OTHER, SELFPAY ==
[2025-03-11 09:26] LABS: Collection Type, Urine Clean Catch; Squamous Epithelial Cell,Urine 0 /hpf (0-5)
[2025-03-11 09:58] LABS: Basophils # (Auto) 0.1 Thou/mm3 (0.0-0.2); Basophils % (Auto) 1 % (0-2.5); Eosinophils # (Auto) 0.2 Thou/mm3 (0.0-0.5); Eosinophils % (Auto) 2 % (0-10); Hematocrit 44.7 % (41.0-53.0); Hemoglobin 15.2 g/dL (13.5-16.0); Immature Granulocytes Auto 0.02 Thou/mm3 (0.00-0.00); Lymphocytes # (Auto) 2.7 Thou/mm3 (1.0-4.8); Lymphocytes % (Auto) 39 % (10-50); Mean Corpuscular HGB Conc 34.0 g/dl (31.0-37.0); Mean Corpuscular Hemoglobin 33.6 pg (25.0-35.0); Mean Corpuscular Volume 99 fL (80-100); Monocytes # (Auto) 0.6 Thou/mm3 (0.0-0.8); Monocytes % (Auto) 9 % (0-12); Neutrophils # (Auto) 3.4 Thou/mm3 (1.8-7.7); Neutrophils % (Auto) 49 % (37-80); Nucleated Red Blood Cell # 0.00 Thou/mm3 (0.00-0.00); Nucleated Red Blood Cell % 0 /100 WBC (0); Platelet Count 315 Thou/mm3 (140-440); RDW Standard Deviation 47.3 fL (35.1-43.9); Red Blood Count 4.53 Miln/mm3 (4.50-5.90); White Blood Count 7.1 Thou/mm3 (3.8-10.6)
[2025-03-11 10:02] LABS: Prostate Specific Antigen 1.89 ng/mL (0-4.00)
[2025-03-11 10:07] LABS: Vitamin B12 848 pg/mL (211-911); Vitamin D 25 Hydroxy Total 52.2 ng/mL (7.3-40.2)
[2025-03-11 10:10] LABS: Glucose Estimated Average 114 mg/dL (80-131); Hemoglobin A1C 5.6 % Hgb (4.8-6.0)
[2025-03-11 10:17] LABS: Alanine Aminotransferase 20 U/L (10-49); Albumin, Serum 4.3 gm/dL (3.4-4.8); Albumin/Globulin Ratio 1.5 (1.2-2.2); Alkaline Phosphatase 69 U/L (46-116); Anion Gap 11 (7-16); Aspartate Amino Transferase 26 U/L (0-34); BUN/Creatinine Ratio 10 Ratio (12-20); Bilirubin,Total 0.8 mg/dL (0.3-1.2); Blood Urea Nitrogen 10 mg/dL (9-23); Calcium 9.2 mg/dL (8.3-10.6); Calcium (Corrected) 9.2 mg/dL (8.5-10.1); Carbon Dioxide 27.3 mMol/L (20.0-31.0); Cardiac Risk Estimate 3.2 RATIO (4.0-6.7); Chloride 107 mMol/L (98-107); Cholesterol 196 mg/dL (132-200); Creatinine (Component) 1.0 mg/dL (0.6-1.3); Globulin 2.8 gm/dL (2.3-3.5); Glucose 112 mg/dL (74-106); HDL Cholesterol 62 mg/dL (40-60); LDL Cholesterol,Calculated 110 mg/dL (0-130); Osmolality,Calculated 288 (275-295); Potassium 4.4 mMol/L (3.4-5.1); Sodium 145 mMol/L (136-145); Thyroid Stimulating Hormone 2.38 uIU/mL (0.55-4.78); Total Protein 7.1 gm/dL (5.7-8.2); Triglycerides 121 mg/dL (30-150); Uric Acid 7.5 mg/dL (3.7-9.2); eGFR > 60 See Note
[2025-03-11 10:56] LABS: Bilirubin,Urine Negative (Negative); Blood,Urine Trace (Negative); Clarity,Urine Clear (Clear/Hazy); Color,Urine Yellow (Lt Yel-Yel); Glucose, Urine Negative (Negative); Ketones,Urine Negative (Negative); Leukocyte Esterase,Urine Positive (Negative); Nitrite,Urine Negative (Negative); PH,Urine 6.0 (5.0-7.0); Protein,Urine Trace (Neg - Trace); RBC,Urine 5 /hpf (0-3); Specific Gravity,Urine 1.026 (1.001-1.035); Urobilinogen,Urine Negative mg/dL (0.0-1.0); WBC,Urine 26 /hpf (0-5)
== END | disposition home or self-care (01) ==
LOC: COPL 08:16
PROVIDERS: PCP Internal Medicine; Referring Provider Internal Medicine; Visit Provider Internal Medicine
DX: Z00.00 Encounter for general adult medical examination without abnormal findings (principal)
CPT/HCPCS: 36415; 80053; 80061; 81001; 82306; 82607; 83036; 84153; 84443; 84550; 85025

== ENCOUNTER → 2025-03-22 | Outpatient (CLI) | payer OTHER, SELFPAY ==
--- NOTE | 2025-03-22 13:30 | XR_ITS ---
Examination: CT abdomen with intravenous contrast CT pelvis with intravenous contrast 2-D coronal reconstructions 2-D sagittal reconstructions Date and time of exam:March 22, 2025 2152 hours Comparison September 03, 2024 INDICATIONS: Diagnosis malignant neoplasm bladder, post surgery October 13, 2024, postchemotherapy. CTDI: vol (mGy) 15.5 DLP: (mGycm) 958 Technique: Multiple axial sections of the abdomen and pelvis have been obtained. 64 slice high-resolution scanner used. 3 mm axial sections have been obtained, post intravenous injection 60 cc [id number] 2-D sagittal, coronal reconstructions obtained. Low dose protocols were performed. One or more of the following dose reduction techniques were used; automated exposure control, adjustment of the mA and/or KV according to patient size, use of iterative reconstruction technique. Findings: No focal liver or splenic lesions No gallstones No pancreatic or adrenal mass No renal or ureteral calculi, no hydronephrosis No interval abdominal or pelvic lymphadenopathy Normal appendix Colonic diverticulosis, no diverticulitis The previously described bladder mass is no longer evident There is mild thickening along the left lateral and posterior left margins of the bladder measuring up to 5 mm No prostatomegaly Moderate disc narrowing L4-L5 IMPRESSION: The previously described bladder mass is no longer identified There is mild thickening of the left lateral and left posterior bladder wall, clinical correlation advised
== END | disposition home or self-care (01) ==
PROVIDERS: PCP Internal Medicine; Referring Provider Urology; Visit Provider Urology
DX: N32.89 Other specified disorders of bladder (principal)
CPT/HCPCS: 74177; A4649; Q9967

== ENCOUNTER → 2025-05-27 | Outpatient (BNVA) | payer OTHER, SELFPAY | END | disposition home or self-care (01) | PROVIDERS: PCP Internal Medicine; Referring Provider Internal Medicine; Visit Provider Urology | DX: C67.9 Malignant neoplasm of bladder, unspecified (principal); N50.0 Atrophy of testis | CPT/HCPCS: 81003; 99212; G0463 ==